=== PATIENT | male | born 1930 | race Caucasian/White ===

== ENCOUNTER 2018-10-08 16:35 | Emergency (ER) | payer OTHER, MEDICAID ==
[~2018-10-08] VITALS: Ht 182.9 cm; Wt 90.7 kg
[~2018-10-08 16:35] MED LIST: COL100 PO; CUTIVATE0.05% TOP; KEP500 PO; LAC PO; LEVAQUIN750 MG PO; LEVOFLOXACIN500 M1 PO; MUPIROCIN2% TOP; NEOMYCIN/POLY B10 M1 AU; PHECLUD PO; PROAIR HFA0.09 MG/A1 INH
[2018-10-08 16:41] VITALS: Ht 182.9 cm; Wt 90.7 kg
[2018-10-08 17:44] LABS: CALCIUM 8.2 mg/dL (8.5-10.1); CARBON DIOXIDE 25.3 mmol/L (21-32); CHLORIDE SERUM 103 mmol/L (98-107); CREATININE SERUM 1.2 mg/dL (0.7-1.3); GLUCOSE SERUM 140 mg/dL (74-106); POTASSIUM SERUM 3.8 mmol/L (3.5-5.1); SODIUM SERUM 137 mmol/L (136-145)
[2018-10-08 17:45] LABS: BASOPHIL % 0.4 % (0-2); PLATELET COUNT 147 x10^3mcL (130-400)
[2018-10-08 17:48] LABS: RED CELL DISTRIBUTION WIDTH 15.1 % (11.5-14.5)
[2018-10-08 17:49] LABS: ALBUMIN 3.5 g/dL (3.4-5.0); ALKALINE PHOSPHATASE 71 U/L (46-116); ALT/SGPT 23 U/L (16-63); AST/SGOT 11 U/L (15-37); BILIRUBIN TOTAL 0.54 mg/dL (0.20-1.00); TOTAL PROTEIN, SERUM 6.7 g/dL (6.4-8.2)
[2018-10-08 18:16] VITALS: BP 129/65
== END 2018-10-08 18:34 | disposition home or self-care (01) ==
LOC: ED 16:35
PROVIDERS: Emergency Medicine
DX: G40.802 Other epilepsy, not intractable, without status epilepticus (principal); Z88.1 Allergy status to other antibiotic agents
CPT/HCPCS: 36415; G0480; J7030